=== PATIENT | female | born 1955 | race Caucasian/White ===

== ENCOUNTER 2018-08-22 08:26 | Day surgery (SDC) | payer BC ==
[~2018-08-22 08:26] MED LIST: LIDOCAINE 2% (SDV) 5 ML INJ
[2018-08-22] MEDS ORDERED: PROPOFOL 100 ML (12:44)
[2018-08-22] MEDS: ISOSULFAN BLUE 1% 5 ML INJ SC (13:15)
[2018-08-22] MEDS: BUPIVACAINE 0.25% (MPF) 30 ML INJ (13:15)
[2018-08-22] MEDS ORDERED: CEFAZOLIN 1 GM INJ (13:18)
[2018-08-22] MEDS ORDERED: DEXAMETHASONE 4 MG/ML 1 ML INJ (13:20)
[2018-08-22] MEDS ORDERED: ONDANSETRON 4 MG INJ (13:21)
[2018-08-22] MEDS ORDERED: GLYCOPYRROLATE 0.4 MG INJ (14:02)
[2018-08-22] MEDS ORDERED: NEOSTIGMINE 3 MG/3 ML SYRINGE (14:02)
[2018-08-22] MEDS: HYDROmorphONE 1 MG/5 ML IV SYRINGE IV ×2 (14:22→14:42)
[2018-08-22] MEDS ORDERED: ALBUTEROL 0.083% (NEB) 2.5 MG/3 ML AMP HHN (14:30)
[2018-08-22] MEDS ORDERED: hydrALAzine 20 MG INJ IV (14:30)
[2018-08-22] MEDS ORDERED: LABETALOL HCL 20MG INJ IV (14:30)
[2018-08-22] MEDS ORDERED: EPHEDrine SULFATE 50 MG/5 ML SYG IV (14:30)
[2018-08-22] MEDS ORDERED: ONDANSETRON 4 MG INJ IV (14:30)
[2018-08-22] MEDS ORDERED: FENTAnyl 50 MCG/ML VIAL IV ×3 (14:30)
[2018-08-22] MEDS ORDERED: HYDROmorphONE 1 MG/5 ML IV SYRINGE IV (14:30)
[2018-08-22] MEDS ORDERED: DIPHENHYDRAMINE 50 MG INJ IV (14:30)
[2018-08-22] MEDS ORDERED: METOCLOPRAMIDE 10 MG INJ IV (14:30)
[2018-08-22] MEDS ORDERED: MEPERIDINE 25 MG INJ IV (14:30)
[2018-08-22] MEDS ORDERED: MIDAZOLAM 1 MG/ML 2 ML INJ IV (14:30)
[2018-08-22] MEDS ORDERED: OXYCODONE/ACETAMINOPHEN (5/325) TAB PO ×2 (14:30)
[2018-08-22] MEDS: HYDROCODONE/APAP (5/325) TAB PO (16:22)
== END 2018-08-22 16:35 | disposition home or self-care (01) ==
LOC: SDS 08:26
DX: D05.12 Intraductal carcinoma in situ of left breast (principal); E03.9 Hypothyroidism, unspecified
CPT/HCPCS: 19301; 88307; 88331; 93005

== ENCOUNTER 2018-10-03 10:37 | Day surgery (SDC) | payer BC ==
[2018-10-03] MEDS: CEFAZOLIN 2 GM/50 ML (PMX) 50 ML IVPB (07:00)
[2018-10-03] MEDS: SOD CHLORIDE 0.9% 1,000 ML IV (07:00)
[~2018-10-03 10:37] MED LIST changes: +ROCURONIUM 50 MG INJ
[2018-10-03 12:59] LABS: ADD MAN DIFF? NO
[2018-10-03 13:05] LABS: WHITE BLOOD COUNT 6.2 10^3/ul (4.8-10.8)
[2018-10-03 13:05] LABS: BASOPHILS % 0.3 % (0.0-2.0); EOSINOPHILS # 0.2 10^3/ul (0.0-0.5); EOSINOPHILS % 3.4 % (0.0-7.0); HEMATOCRIT 38.8 % (37.0-47.0); HEMOGLOBIN 12.8 g/dl (12.0-16.0); LYMPHOCYTES # 1.5 10^3/ul (0.8-2.9); LYMPHOCYTES % 24.2 % (15.0-51.0); MEAN CORPUSCULAR HEMOGLOBIN 29.2 pg (29.0-33.0); MEAN CORPUSCULAR VOLUME 88.4 fl (82.0-101.0); MEAN PLATELET VOLUME 9.5 fl (7.4-10.4); MONOCYTE # 0.4 10^3/ul (0.3-0.9); MONOCYTES % 5.9 % (0.0-11.0); NEUTROPHIL # 4.1 10^3/ul (1.6-7.5); PLATELET COUNT 195 10^3/UL (140-415); RED BLOOD COUNT 4.39 10^6/ul (4.20-5.40)
[2018-10-03 13:22] LABS: ALANINE AMINOTRANSFERASE 29 IU/L (13-69); ALBUMIN 3.8 g/dl (3.3-4.9); ALBUMIN/GLOBULIN RATIO 1.52; ALKALINE PHOSPHATASE 69 IU/L (42-121); ANION GAP 8 (5-13); ASPARTATE AMINO TRANSFERASE 28 IU/L (15-46); BILIRUBIN,INDIRECT 0.4 mg/dl (0-1.1); BILIRUBIN,TOTAL 0.4 mg/dl (0.2-1.3); BLOOD UREA NITROGEN 10 mg/dl (7-20); CALCIUM 9.2 mg/dl (8.4-10.2); CARBON DIOXIDE 29 mmol/L (21-31); CHLORIDE 107 mmol/L (97-110); CREATININE 0.71 mg/dl (0.44-1.00); Estimated GFR > 60 mL/min (>60); GLUCOSE 88 mg/dl (70-220); POTASSIUM 4.9 mmol/L (3.5-5.1); SODIUM 144 mmol/L (135-144); TOTAL PROTEIN 6.3 g/dl (6.1-8.1)
[2018-10-03 13:32] LABS: INR 0.98; PARTIAL THROMBOPLASTIN TIME 26.4 Sec (23.0-35.0); PROTIME 13.1 Sec (11.9-14.9)
[2018-10-03] MEDS ORDERED: PROPOFOL 100 ML (14:47)
[2018-10-03] MEDS ORDERED: DEXAMETHASONE 4 MG/ML 1 ML INJ (14:49)
[2018-10-03] MEDS ORDERED: ONDANSETRON 4 MG INJ (14:49)
[2018-10-03] MEDS ORDERED: ROCURONIUM 50 MG INJ (14:49)
[2018-10-03] MEDS ORDERED: CEFAZOLIN 1 GM INJ (15:16)
[2018-10-03] MEDS ORDERED: KETOROLAC 30 MG INJ (15:16)
[2018-10-03] MEDS: BUPIVACAINE 0.25% (MPF) 30 ML INJ (15:28)
[2018-10-03] MEDS ORDERED: LABETALOL HCL 20MG INJ IV (16:00)
[2018-10-03] MEDS ORDERED: FENTAnyl 50 MCG/ML VIAL IV ×2 (16:00)
[2018-10-03] MEDS ORDERED: KETOROLAC 30 MG INJ IV (16:00)
[2018-10-03] MEDS ORDERED: ALBUTEROL 0.083% (NEB) 2.5 MG/3 ML AMP HHN (16:00)
[2018-10-03] MEDS ORDERED: hydrALAzine 20 MG INJ IV (16:00)
[2018-10-03] MEDS ORDERED: DIPHENHYDRAMINE 50 MG INJ IV (16:00)
[2018-10-03] MEDS ORDERED: EPHEDrine SULFATE 50 MG/5 ML SYG IV (16:00)
[2018-10-03] MEDS ORDERED: MIDAZOLAM 1 MG/ML 2 ML INJ IV (16:00)
[2018-10-03] MEDS ORDERED: ONDANSETRON 4 MG INJ IV (16:00)
[2018-10-03] MEDS ORDERED: OXYCODONE/ACETAMINOPHEN (5/325) TAB PO (16:00)
[2018-10-03] MEDS ORDERED: FENTAnyl 50 MCG/ML VIAL (16:01)
[2018-10-03] MEDS ORDERED: MEPERIDINE 25 MG INJ (16:02)
[2018-10-03] MEDS: MEPERIDINE 25 MG INJ IV (16:14)
[2018-10-03] MEDS: FENTAnyl 50 MCG/ML VIAL IV (16:19)
[2018-10-03] MEDS: OXYCODONE/ACETAMINOPHEN (5/325) TAB PO (16:37)
[2018-10-03] MEDS: HYDROCODONE/APAP (5/325) TAB PO (16:42)
== END 2018-10-03 17:28 | disposition home or self-care (01) ==
LOC: SDS 10:37
DX: D05.12 Intraductal carcinoma in situ of left breast (principal); E03.9 Hypothyroidism, unspecified; E66.9 Obesity, unspecified; Z68.32 Body mass index [BMI] 32.0-32.9, adult
CPT/HCPCS: 19301; 80053; 85025; 85610; 85730; 88307; 93005